=== PATIENT | male | born 1950 | race Caucasian/White ===

== ENCOUNTER → 2021-06-14 | Outpatient (REF) | payer MEDICARE, BC ==
[2021-06-14 14:47] LABS: APPEARANCE, URINE CLEAR (CLEAR); BACTERIA, URINE AUTO 1+ (NEGATIVE); BILIRUBIN, URINE AUTO NEGATIVE (NEGATIVE); BLOOD, URINE BLOOD 1+ (NEGATIVE); COLOR, URINE YELLOW (YELLOW); GLUCOSE, URINE (UA) AUTO NEGATIVE (NEGATIVE); KETONE, URINE AUTO NEGATIVE (NEGATIVE); LEUKOCYTE ESTERASE, URINE AUTO NEGATIVE (NEGATIVE); MUCUS, URINE SMALL (NEGATIVE); NITRITE, URINE AUTO NEGATIVE (NEGATIVE); PROTEIN, URINE AUTO NEGATIVE (NEGATIVE); RBC, URINE AUTO 13 /HPF (0-3); SPECIFIC GRAVITY URINE AUTO 1.015 (1.002-1.035); SQUAMOUS EPITHELIAL CELL UR AU 0 /HPF (0-6); UROBILINOGEN, URINE AUTO 0.2 mg/dL (0.0-2.0); WBC, URINE AUTO 4 /HPF (0-3)
== END ==
LOC: M SMT 13:39
PROVIDERS: ATTEND Nurse Practitioner Women's Health
DX: N40.1 Benign prostatic hyperplasia with lower urinary tract symptoms (principal)
CPT/HCPCS: 51798; 81001; 87086; G0463

== ENCOUNTER 2021-08-13 08:48 | Day surgery (SDC) | payer MEDICARE ==
[~2021-08-13] VITALS: Ht 180.3 cm; Wt 86.6 kg
[~2021-08-13 08:48] MED LIST: FINA5TAB2 PO; TAMS1CAP17 PO
[2021-08-13] MEDS ORDERED: CIPROFLOXACIN 400 MG in IV 1 EA IV ONE (09:15)
[2021-08-13] MEDS ORDERED: LR 1,000 ML IV ONE (09:20)
[2021-08-13] MEDS ORDERED: LIDOCAINE 2% 100MG/5ML SDV (FOR ANES.) As Ordered ONE (10:07)
[2021-08-13] MEDS ORDERED: propofoL 200 MG/20 ML VIAL As Ordered ONE (10:08)
[2021-08-13] MEDS ORDERED: dexameTHASONE 4 MG/ML 1ML VIAL (J1100 PER 1MG) As Ordered ONE (10:08)
[2021-08-13] MEDS ORDERED: ONDANSETRON 4MG/2ML VIAL As Ordered ONE (10:08)
[2021-08-13] MEDS ORDERED: fentaNYL 100 MCG/2 ML INJECTION (J3010) As Ordered ONE (10:08)
[2021-08-13] MEDS ORDERED: MIDAZOLAM INJ 2MG/2ML VIAL (J2250 PER 1MG) As Ordered ONE (10:08)
[2021-08-13] MEDS ORDERED: ACETAMINOPHEN 1000MG 100ML IV BTL (OFIRMEV) (J0131 PER 10MG) As Ordered ONE (11:22)
[2021-08-13] MEDS ORDERED: PYRI1TAB5 PO (11:37)
[2021-08-13] MEDS ORDERED: BACTDSTA PO (11:37)
[2021-08-13] MEDS ORDERED: OXYB5TAB10 PO (11:37)
[2021-08-13] MEDS ORDERED: LR 1,000 ML IV SCH ×2 (11:50)
[2021-08-13] MEDS ORDERED: fentaNYL 100 MCG/2 ML INJECTION (J3010) IV PRN (11:50)
[2021-08-13] MEDS ORDERED: oxyCODONE 5MG TAB PO PRN (11:50)
[2021-08-13] MEDS ORDERED: ONDANSETRON 4MG/2ML VIAL IV PRN (11:50)
[2021-08-13] MEDS ORDERED: HYDROMORPHONE HCL 0.5 MG/ 0.5 ML SYRINGE (J1170 PER 1) IV PRN (11:50)
--- NOTE | 2021-08-13 11:58 | ROOPDOC ---
[facility] Report Of Operation Report of Operation DATE OF PROCEDURE: 08/13/21 PREPROCEDURE DIAGNOSES: [microhematuria, bladder lesions noted on cysto]. POSTPROCEDURE DIAGNOSES: [bladder lesions seemed to have disappeared, slight bulbous stricture]. PROCEDURE PERFORMED: [cysto with bladder biopsy, ureteral catheterization]. SURGEON: [Cora Diehl, CUTTER OUT: [none], ANESTHESIA: [general]. ESTIMATED BLOOD LOSS: Approximately [1] mL. COMPLICATIONS: [none]. REMARKS: [70yo wm. Cysto for microhematuria. Erythematous lesions near left uo noted. Today's surgery arranged. Informed consent obtained. Risks discussed including infection, pain, bleeding, scarring, injury to gu tract, perforation of bladder and others.]. FINDINGS: SPECIMENS REMOVED: [biopsy x 1] PROCEDURE NOTE: . DESCRIPTION OF PROCEDURE: [Met with pt in preop area and surgery again discussed. Pt wished to proceed. Cystoscopy note reviewed. Pt brought to OR room. Supine position at the start. General anesthesia secured. Dorsal litho position next. Well padded. Prep'd and draped in sterile fashion. Time out performed. Surgery done under iv antibiotic. Resectoscope sheath advanced into bladder with help from its obturator. Scope then assembled. Bladder inspected. Erythematous lesions noted before not seen. 1 small lesion, subcentimeter, lateral to uo noted. Raised. Lesion biopsied with resectoscope. Specimen handed off. Hemostasis secured with loop and cautery. To demonstr ate that uo and ureter are fine, rigid cystoscopy performed and catheter advanced up ureter. No injury noted. This ended surgery. Bladder emptied and scope removed. Dheeraj - small benign prostate. Circ'd penis without lesions. Home with Bactrim, oxybutynin and Pyridium. I spoke with pt's after surgery.]. DASIA DIEHL MD Aug 13, 2021 11:58
[2021-08-13 13:10] VITALS: BP 138/72
== END 2021-08-13 13:20 | disposition home or self-care (01) ==
LOC: M SDC 08:48
PROVIDERS: ATTEND Urology
DX: N32.9 Bladder disorder, unspecified (principal); R31.29 Other microscopic hematuria; N40.0 Benign prostatic hyperplasia without lower urinary tract symptoms; J44.9 Chronic obstructive pulmonary disease, unspecified; Z86.718 Personal history of other venous thrombosis and embolism; Z87.891 Personal history of nicotine dependence; Z79.899 Other long term (current) drug therapy
CPT/HCPCS: 52204; 88108; 88305; C1769; J0131; J0744; J1100; J2250; J2405; J3010

== ENCOUNTER → 2022-03-04 | Outpatient (CLI) | payer MEDICARE ==
[~2022-03-04] MED LIST changes: +BACTDSTA PO; +ISOVUE-370 76% 100ML VIAL As Ordered ONE; +OXYB5TAB10 PO; +PYRI1TAB5 PO
== END ==
LOC: M RAD 09:36
PROVIDERS: ATTEND Urology
DX: N20.0 Calculus of kidney (principal); R31.29 Other microscopic hematuria; I70.0 Atherosclerosis of aorta; I25.10 Atherosclerotic heart disease of native coronary artery without angina pectoris; J98.4 Other disorders of lung; N20.1 Calculus of ureter; D35.01 Benign neoplasm of right adrenal gland; D35.02 Benign neoplasm of left adrenal gland; M51.35 Other intervertebral disc degeneration, thoracolumbar region
CPT/HCPCS: 74178; Q9967

== ENCOUNTER 2022-04-22 08:27 | Day surgery (SDC) | payer MEDICARE ==
[~2022-04-22] VITALS: Ht 175.3 cm; Wt 83.5 kg
[~2022-04-22 08:27] MED LIST changes: +ASPI81TA26 PO; +CALCCAP4 PO; +CIPROFLOXACIN 400 MG in IV 1 EA IV ONE; -ISOVUE-370 76% 100ML VIAL As Ordered ONE; +VITMTA PO
[2022-04-22] MEDS ORDERED: LR 1,000 ML IV SCH ×2 (08:50→10:45)
[2022-04-22] MEDS ORDERED: LIDOCAINE 2% 100MG/5ML SDV (FOR ANES.) As Ordered ONE (09:42)
[2022-04-22] MEDS ORDERED: propofoL 200 MG/20 ML VIAL As Ordered ONE (09:42)
[2022-04-22] MEDS ORDERED: MIDAZOLAM INJ 2MG/2ML VIAL (J2250 PER 1MG) As Ordered ONE (09:42)
[2022-04-22] MEDS ORDERED: METOCLOPRAMIDE INJ 10MG/2ML VIAL (J2765 PER 1) As Ordered ONE (09:42)
[2022-04-22] MEDS ORDERED: ONDANSETRON 4MG/2ML VIAL As Ordered ONE (09:42)
[2022-04-22] MEDS ORDERED: fentaNYL 100 MCG/2 ML INJECTION As Ordered ONE (09:43)
[2022-04-22] MEDS ORDERED: ISOVUE-300 61% 50ML VIAL As Ordered ONE (10:07)
[2022-04-22] MEDS ORDERED: oxyCODONE 5MG TAB PO PRN (10:45)
[2022-04-22] MEDS ORDERED: ONDANSETRON 4MG/2ML VIAL IV PRN (10:45)
[2022-04-22] MEDS ORDERED: HYDROMORPHONE HCL 0.5 MG/ 0.5 ML SYRINGE (J1170 PER 1) IV PRN (10:45)
[2022-04-22] MEDS ORDERED: fentaNYL 100 MCG/2 ML INJECTION IV PRN (10:45)
[2022-04-22] MEDS ORDERED: PYRI1TAB5 PO (10:47)
[2022-04-22] MEDS ORDERED: HYDR-3713 PO (10:47)
[2022-04-22] MEDS ORDERED: BACT800T5 PO (10:47)
[2022-04-22] MEDS ORDERED: OXYB5TAB10 PO (10:47)
[2022-04-22] MEDS ORDERED: KETOROLAC 60MG 2ML VIAL As Ordered ONE (10:53)
[2022-04-22] MEDS ORDERED: dexameTHASONE 4 MG/ML 1ML VIAL (J1100 PER 1MG) As Ordered ONE (10:53)
[2022-04-22 12:08] VITALS: BP 146/65
== END 2022-04-22 12:38 | disposition home or self-care (01) ==
LOC: M SDC 08:27
PROVIDERS: ATTEND Urology
DX: N20.1 Calculus of ureter (principal); J44.9 Chronic obstructive pulmonary disease, unspecified; M10.9 Gout, unspecified; Z79.899 Other long term (current) drug therapy; Z86.718 Personal history of other venous thrombosis and embolism
CPT/HCPCS: 52332; 74420; C1769; C2617; J0744; J1100; J1885; J2250; J2405; J2765; J3010; Q9967

== ENCOUNTER 2022-05-06 07:58 | Day surgery (SDC) | payer MEDICARE ==
[~2022-05-06] VITALS: Ht 180.3 cm; Wt 79.7 kg
[~2022-05-06 07:58] MED LIST changes: +BACT800T5 PO; +HYDR-3713 PO
[2022-05-06] MEDS ORDERED: LR 1,000 ML IV SCH ×2 (08:05→12:20)
[2022-05-06] MEDS ORDERED: ISOS30TAB PO (08:38)
[2022-05-06] MEDS ORDERED: LISI2.5T9 PO (08:38)
[2022-05-06] MEDS ORDERED: CARV3.12 PO (08:38)
[2022-05-06] MEDS ORDERED: MIDAZOLAM INJ 2MG/2ML VIAL (J2250 PER 1MG) As Ordered ONE (09:55)
[2022-05-06] MEDS ORDERED: fentaNYL 100 MCG/2 ML INJECTION As Ordered ONE (09:55)
[2022-05-06] MEDS ORDERED: ISOVUE-300 61% 50ML VIAL As Ordered ONE (10:22)
[2022-05-06] MEDS ORDERED: dexameTHASONE 4 MG/ML 1ML VIAL (J1100 PER 1MG) As Ordered ONE (10:51)
[2022-05-06] MEDS ORDERED: ONDANSETRON 4MG/2ML VIAL As Ordered ONE (10:51)
[2022-05-06] MEDS ORDERED: propofoL 200 MG/20 ML VIAL As Ordered ONE (11:05)
[2022-05-06] MEDS ORDERED: ePHEDrine SULFATE 25 MG/5 ML(5MG/ML) SYRINGE As Ordered ONE (11:08)
[2022-05-06] MEDS ORDERED: PHENYLephrine 500MCG 5ML (100MCG/ML) SYRINGE As Ordered ONE (11:08)
[2022-05-06] MEDS ORDERED: HYDR-3713 PO (12:01)
[2022-05-06] MEDS ORDERED: PYRI1TAB5 PO (12:01)
[2022-05-06] MEDS ORDERED: OXYB5TAB10 PO (12:01)
[2022-05-06] MEDS ORDERED: BACT800T5 PO (12:01)
[2022-05-06] MEDS ORDERED: PERCOCET 5MG/325MG TAB PO PRN (12:20)
[2022-05-06] MEDS ORDERED: ONDANSETRON 4MG/2ML VIAL IV PRN (12:20)
[2022-05-06] MEDS ORDERED: fentaNYL 100 MCG/2 ML INJECTION IV PRN (12:20)
[2022-05-06 13:12] VITALS: BP 115/62
== END 2022-05-06 13:42 | disposition home or self-care (01) ==
LOC: M SDC 07:58
PROVIDERS: ATTEND Urology
DX: N20.1 Calculus of ureter (principal); M10.9 Gout, unspecified; J44.9 Chronic obstructive pulmonary disease, unspecified; N40.0 Benign prostatic hyperplasia without lower urinary tract symptoms; Z79.899 Other long term (current) drug therapy; Z86.718 Personal history of other venous thrombosis and embolism; Z79.82 Long term (current) use of aspirin; Z87.891 Personal history of nicotine dependence
CPT/HCPCS: 52356; 74420; 82365; C1769; C2617; J0744; J1100; J2370; J2405; J3010; Q9967

== ENCOUNTER 2022-05-20 10:21 | Day surgery (SDC) | payer MEDICARE ==
[~2022-05-20] VITALS: Ht 180.3 cm; Wt 77.9 kg
[~2022-05-20 10:21] MED LIST changes: +CARV3.12 PO; +ISOS30TAB PO; +LISI2.5T9 PO
[2022-05-20] MEDS ORDERED: LR 1,000 ML IV SCH ×2 (10:55→15:15)
[2022-05-20] MEDS ORDERED: fentaNYL 100 MCG/2 ML INJECTION As Ordered ONE (12:34)
[2022-05-20] MEDS ORDERED: LIDOCAINE 2% INJ 100 MG/5 ML SYRINGE As Ordered ONE ×2 (13:37→13:38)
[2022-05-20] MEDS ORDERED: ONDANSETRON 4MG 2ML VIAL As Ordered ONE (13:37)
[2022-05-20] MEDS ORDERED: propofoL 200 MG/20 ML VIAL As Ordered ONE (13:37)
[2022-05-20] MEDS ORDERED: dexameTHASONE 4 MG/ML 1ML VIAL (J1100 PER 1MG) As Ordered ONE (13:38)
[2022-05-20] MEDS ORDERED: ISOVUE-300 61% 50ML VIAL As Ordered ONE (13:38)
[2022-05-20] MEDS ORDERED: ACETAMINOPHEN 1000MG 100ML IV BTL (OFIRMEV) (J0131 PER 10MG) As Ordered ONE (14:29)
[2022-05-20] MEDS ORDERED: fentaNYL 100 MCG/2 ML INJECTION IV PRN (15:15)
[2022-05-20] MEDS ORDERED: oxyCODONE 5MG TAB PO PRN (15:15)
[2022-05-20] MEDS ORDERED: MORPHINE 2 MG/ML 1ML VIAL IV PRN (15:15)
[2022-05-20] MEDS ORDERED: ONDANSETRON 4MG 2ML VIAL IV PRN (15:15)
[2022-05-20] MEDS ORDERED: MACR100C43 PO (15:41)
[2022-05-20 16:29] VITALS: BP 102/56
== END 2022-05-20 16:56 | disposition home or self-care (01) ==
LOC: M SDC 10:21
PROVIDERS: ATTEND Urology
DX: N20.1 Calculus of ureter (principal); I10 Essential (primary) hypertension; M10.9 Gout, unspecified; K21.9 Gastro-esophageal reflux disease without esophagitis; J44.9 Chronic obstructive pulmonary disease, unspecified; Z79.899 Other long term (current) drug therapy; Z87.891 Personal history of nicotine dependence; Z85.118 Personal history of other malignant neoplasm of bronchus and lung
CPT/HCPCS: 52356; 74420; 82365; C1769; C2617; J0744; Q9967

== ENCOUNTER 2022-08-01 10:26 | Day surgery (SDC) | payer MEDICARE ==
[~2022-08-01] VITALS: Ht 157.5 cm; Wt 77.6 kg
[~2022-08-01 10:26] MED LIST changes: +LR 1,000 ML IV SCH; +ceFAZolin SOD 2 GM in IV 1 EA IV ONE
[2022-08-01] MEDS ORDERED: propofoL 500 MG/50 ML VIAL As Ordered ONE (13:07)
[2022-08-01] MEDS ORDERED: ONDANSETRON 4MG 2ML VIAL As Ordered ONE (13:07)
[2022-08-01] MEDS ORDERED: KETAMINE HCL 200 MG/20 ML VIAL As Ordered ONE (13:07)
[2022-08-01] MEDS ORDERED: fentaNYL 100 MCG/2 ML INJECTION As Ordered ONE (13:07)
[2022-08-01] MEDS ORDERED: MIDAZOLAM INJ 2MG/2ML VIAL (J2250 PER 1MG) As Ordered ONE (13:07)
[2022-08-01] MEDS ORDERED: LIDOCAINE 2% 100MG/5ML SDV (FOR ANES.) As Ordered ONE (13:07)
[2022-08-01] MEDS ORDERED: GLYCOPYRROLATE INJ 0.2 MG/ML 2 ML VIAL As Ordered ONE (13:07)
[2022-08-01] MEDS ORDERED: PHENYLephrine 500MCG 5ML (100MCG/ML) SYRINGE As Ordered ONE (13:26)
[2022-08-01 14:55] VITALS: BP 108/50
== END 2022-08-01 14:55 | disposition home or self-care (01) ==
LOC: M SDC 10:26
PROVIDERS: ATTEND Urology
DX: N20.0 Calculus of kidney (principal); I10 Essential (primary) hypertension; Z86.718 Personal history of other venous thrombosis and embolism; J44.9 Chronic obstructive pulmonary disease, unspecified; N40.0 Benign prostatic hyperplasia without lower urinary tract symptoms; Z79.899 Other long term (current) drug therapy; Z87.891 Personal history of nicotine dependence
CPT/HCPCS: 50590; J0690; J2250; J2370; J2405; J3010

== ENCOUNTER → 2022-08-01 | Outpatient (CLI) | payer MEDICARE ==
[~2022-08-01] MED LIST changes: +ATOR1TAB19 PO; -CIPROFLOXACIN 400 MG in IV 1 EA IV ONE; +LOSA25TA13 PO; +MACR100C43 PO
== END ==
LOC: M RAD 10:06
PROVIDERS: ATTEND Family Medicine
DX: N20.0 Calculus of kidney (principal); Z96.0 Presence of urogenital implants

== ENCOUNTER 2023-02-24 08:13 | Day surgery (SDC) | payer MEDICARE ==
[~2023-02-24] VITALS: Ht 180.3 cm; Wt 80.6 kg
[~2023-02-24 08:13] MED LIST changes: +BAYE81TA7 PO; -LR 1,000 ML IV SCH; +VENTAER INH
[2023-02-24] MEDS ORDERED: LR 1,000 ML IV SCH ×2 (09:10→11:15)
[2023-02-24] MEDS ORDERED: propofoL 200 MG/20 ML VIAL As Ordered ONE (09:47)
[2023-02-24] MEDS ORDERED: KETOROLAC 60MG 2ML VIAL As Ordered ONE (09:48)
[2023-02-24] MEDS ORDERED: ONDANSETRON 4MG 2ML VIAL As Ordered ONE (09:48)
[2023-02-24] MEDS ORDERED: LIDOCAINE 2% 100MG/5ML SDV (FOR ANES.) As Ordered ONE (09:48)
[2023-02-24] MEDS ORDERED: MIDAZOLAM INJ 2MG/2ML VIAL As Ordered ONE (09:49)
[2023-02-24] MEDS ORDERED: fentaNYL 100 MCG/2 ML INJECTION As Ordered ONE (09:49)
[2023-02-24] MEDS ORDERED: ISOVUE-300 61% 100ML VIAL As Ordered ONE (09:52)
[2023-02-24] MEDS ORDERED: CIPROFLOXACIN/D5W 400 MG/200 ML BAG As Ordered ONE (09:53)
[2023-02-24] MEDS ORDERED: ePHEDrine SULFATE 25 MG/5 ML(5MG/ML) SYRINGE As Ordered ONE (10:45)
[2023-02-24] MEDS ORDERED: HYDROMORPHONE HCL 0.5 MG/ 0.5 ML SYRINGE IV PRN (11:15)
[2023-02-24] MEDS ORDERED: ONDANSETRON 4MG 2ML VIAL IV PRN (11:15)
[2023-02-24] MEDS ORDERED: fentaNYL 100 MCG/2 ML INJECTION IV PRN (11:15)
[2023-02-24] MEDS ORDERED: oxyCODONE 5MG TAB PO PRN (11:15)
[2023-02-24] MEDS ORDERED: MACR100C43 PO (11:18)
[2023-02-24 12:10] VITALS: BP 118/60
[2023-02-24] MEDS ORDERED: ACETAMINOPHEN 1000MG 100ML IV BAG As Ordered ONE (12:10)
== END 2023-02-24 13:05 | disposition home or self-care (01) ==
LOC: M SDC 08:13
PROVIDERS: ATTEND Urology
DX: N20.1 Calculus of ureter (principal); J44.9 Chronic obstructive pulmonary disease, unspecified; I10 Essential (primary) hypertension; E78.5 Hyperlipidemia, unspecified; M10.9 Gout, unspecified; Z86.718 Personal history of other venous thrombosis and embolism; Z99.81 Dependence on supplemental oxygen; Z85.118 Personal history of other malignant neoplasm of bronchus and lung; Z87.891 Personal history of nicotine dependence; Z88.0 Allergy status to penicillin
CPT/HCPCS: 52356; 76000; C1769; C2617; J0131; J0744; J1100; J1885; J2250; J2405; J3010; Q9967